=== PATIENT | male | born 1950 | race Caucasian/White ===

== ENCOUNTER 2019-05-28 07:28 | Day surgery (SDC) | payer OTHER ==
[~2019-05-28] VITALS: Ht 188 cm; Wt 94.8 kg
[~2019-05-28 07:28] MED LIST: EZET10TA48 PO; INSU300I3 SQ; NORT25CA3 PO; ROSU40 PO; SODIUM CHLORIDE 0.9% 1000ML 1,000 ML IV ONE
[2019-05-28 09:04] VITALS: BP 127/55
[2019-05-28] MEDS ORDERED: VIT1CAPS47 PO (09:14)
[2019-05-28 10:01] VITALS: BP 100/44
[2019-05-28] MEDS ORDERED: PROPOFOL 10 MG/ML 20ML VIAL IV ONE ×2 (10:05)
[2019-05-28 10:06] VITALS: BP 95/45
[2019-05-28 10:11] VITALS: BP 110/56
[2019-05-28 10:16] VITALS: BP 117/55
[2019-05-28 10:21] VITALS: BP 109/56
== END 2019-05-28 10:35 | disposition home or self-care (01) ==
LOC: DAH 07:28 → ENDO 07:28
PROVIDERS: ATTEND Internal Medicine
DX: Z12.11 Encounter for screening for malignant neoplasm of colon (principal); D12.3 Benign neoplasm of transverse colon; K64.0 First degree hemorrhoids; K57.30 Diverticulosis of large intestine without perforation or abscess without bleeding; I10 Essential (primary) hypertension; E78.2 Mixed hyperlipidemia; E11.9 Type 2 diabetes mellitus without complications; Z85.828 Personal history of other malignant neoplasm of skin; Z88.1 Allergy status to other antibiotic agents; Z88.2 Allergy status to sulfonamides; Z79.4 Long term (current) use of insulin; Z87.891 Personal history of nicotine dependence; Z79.899 Other long term (current) drug therapy; Z98.890 Other specified postprocedural states; Z72.89 Other problems related to lifestyle; Z82.49 Family history of ischemic heart disease and other diseases of the circulatory system; Z82.5 Family history of asthma and other chronic lower respiratory diseases; Z82.3 Family history of stroke
CPT/HCPCS: 45380; 82948 ×2; 88305; A4606; J2704 ×2; J7030